=== PATIENT | female | born 1960 | race African-American/Black ===

== ENCOUNTER 2019-08-12 12:30 | Emergency (ER) | payer MEDICAID ==
[~2019-08-12] VITALS: Ht 160 cm; Wt 129.0 kg
[2019-08-12 12:54] VITALS: BP 157/87
[2019-08-12] MEDS ORDERED: ACETAMINOPHEN 325MG TABLET PO ONE (14:15)
== END 2019-08-12 15:00 | disposition home or self-care (01) ==
LOC: ER 12:30
DX: B34.9 Viral infection, unspecified (principal); J45.909 Unspecified asthma, uncomplicated; H92.02 Otalgia, left ear; R05 Cough; R09.81 Nasal congestion
CPT/HCPCS: 71045; 99283